=== PATIENT | female | born 1965 | race African-American/Black ===

== ENCOUNTER 2021-04-13 08:17 | Outpatient (REF) | payer OTHER, SELFPAY ==
--- NOTE | ~2021-04-13 | MM_ITS ---
EXAMINATION: MM SCREENING DIGITAL BREAST TOMOSYNTHESIS, BILATERAL CLINICAL INFORMATION: Screening. Asymptomatic. The lifetime risk of breast cancer based on the Tyrer-Cuzick Model is 19.0%. COMPARISON: Mammography: MRI of 10/30/2019 and studies dating back to 09/13/2014. TECHNIQUE: Digital breast tomosynthesis is performed in both the craniocaudal and mediolateral oblique views along with computer-aided detection (CAD). Synthesized 2D images are generated from the Tomosynthesis. FINDINGS: The breasts are heterogeneously dense, which may obscure small masses (ACR BI-RADS breast composition Category c). There is multiplicity and bilaterality of calcifications which are similar in appearance to other groupings including those that have been biopsied. No new more suspicious grouping of calcifications or abnormal dominant mass identified. Region of architectural distortion within the lateral aspect of the left breast from previous surgery is noted. MM/MM tomosynthesis screening BI IMPRESSION: There are no significant changes from prior study. ASSESSMENT: BI-RADS 2: Benign. RECOMMENDATION: Routine annual mammography screening. This patient's information was entered into a reminder system with a target due date for their next mammogram.
== END 2021-04-13 08:18 | disposition home or self-care (01) ==
LOC: HO.MAMMO 08:17
PROVIDERS: PCP Internal Medicine; Visit Provider Obstetrics & Gynecology Gynecology
DX: Z12.31 Encounter for screening mammogram for malignant neoplasm of breast (principal)
CPT/HCPCS: 77063; 77067

== ENCOUNTER 2021-04-17 13:04 | Outpatient (REF) | payer OTHER, SELFPAY ==
--- NOTE | ~2021-04-17 | US_ITS ---
EXAMINATION: US SCREENING ULTRASOUND BREAST, BILATERAL CLINICAL INFORMATION: Dense breasts on mammography. Screening ultrasound. Family history breast cancer, mother. TC score 19%. COMPARISON: Mammography 04/13/2021, bilateral breast MR 10/30/2019, bilateral breast screening ultrasound 07/15/2018. TECHNIQUE: Ultrasound is performed using grayscale imaging and color Doppler. Imaging is performed to include the four quadrants and retroareolar region. Both breasts are imaged. FINDINGS: Right breast: There is no suspicious finding by ultrasound. There is no cystic or solid mass or focal architectural abnormality. Left breast: There is no suspicious finding by ultrasound. There is no cystic or solid mass or focal architectural abnormality. US/US breast LT complete IMPRESSION: Normal study. ASSESSMENT: BI-RADS 1: Negative RECOMMENDATION: Routine annual mammography screening. Additional adjunct breast MRI as clinical risk factors warrant. This patient's information was entered into a reminder system with a target due date for their next mammogram.
--- NOTE | ~2021-04-17 | US_ITS ---
EXAMINATION: US SCREENING ULTRASOUND BREAST, BILATERAL CLINICAL INFORMATION: Dense breasts on mammography. Screening ultrasound. Family history breast cancer, mother. TC score 19%. COMPARISON: Mammography 04/13/2021, bilateral breast MR 10/30/2019, bilateral breast screening ultrasound 07/15/2018. TECHNIQUE: Ultrasound is performed using grayscale imaging and color Doppler. Imaging is performed to include the four quadrants and retroareolar region. Both breasts are imaged. FINDINGS: Right breast: There is no suspicious finding by ultrasound. There is no cystic or solid mass or focal architectural abnormality. Left breast: There is no suspicious finding by ultrasound. There is no cystic or solid mass or focal architectural abnormality. US/US breast RT complete IMPRESSION: Normal study. ASSESSMENT: BI-RADS 1: Negative RECOMMENDATION: Routine annual mammography screening. Additional adjunct breast MRI as clinical risk factors warrant. This patient's information was entered into a reminder system with a target due date for their next mammogram.
== END 2021-04-17 13:05 | disposition home or self-care (01) ==
LOC: HO.MAMMO 13:04
PROVIDERS: Visit Provider Obstetrics & Gynecology Gynecology
DX: R92.2 Inconclusive mammogram (principal); Z80.3 Family history of malignant neoplasm of breast
CPT/HCPCS: 76641

== ENCOUNTER 2021-09-04 10:43 | Outpatient (REF) | payer OTHER, SELFPAY ==
[2021-09-04 11:30] LABS: Estimated Average Glucose 120 mg/dL; Hemoglobin A1c % 5.8 %
== END 2021-09-04 10:44 | disposition home or self-care (01) ==
LOC: HO.LAB 10:43
PROVIDERS: Visit Provider Internal Medicine
DX: Z00.00 Encounter for general adult medical examination without abnormal findings (principal); R73.01 Impaired fasting glucose; R79.89 Other specified abnormal findings of blood chemistry
CPT/HCPCS: 36415; 82306; 83036

== ENCOUNTER 2022-04-16 15:52 | Outpatient (REF) | payer OTHER, SELFPAY ==
--- NOTE | ~2022-04-16 | MM_ITS ---
EXAMINATION: MM SCREENING DIGITAL BREAST TOMOSYNTHESIS, BILATERAL CLINICAL INFORMATION: Screening. Asymptomatic. Family history breast cancer, mother. Prior bilateral benign MR guided biopsy. The lifetime risk of breast cancer based on the Tyrer-Cuzick Model is 17%. COMPARISON: Mammography: 04/13/2021, 01/29/2019; outside mammography 10/02/2017, 03/06/2017, and 09/24/2016 ([facility]); bilateral screening breast ultrasound 04/17/2021, MR breasts 10/30/2019. TECHNIQUE: Digital breast tomosynthesis is performed in both the craniocaudal and mediolateral oblique views along with computer-aided detection (CAD). Synthesized 2D images are generated from the tomosynthesis. FINDINGS: The breasts are heterogeneously dense, which may obscure small masses (ACR BI-RADS breast composition Category c). There are no significant masses, abnormal calcifications, or other abnormalities. Parenchymal pattern is similar to prior studies. There is no developing density or architectural abnormality. There are biopsy clip markers again noted central 4:00 left breast and central upper outer right breast. The axilla and skin contours are unremarkable. No significant changes. MM/MM tomosynthesis screening BI IMPRESSION: No mammographic evidence of malignancy. ASSESSMENT: BI-RADS 1: Negative RECOMMENDATION: Routine annual mammography screening. This patient's information was entered into a reminder system with a target due date for their next mammogram.
== END 2022-04-16 15:53 | disposition home or self-care (01) ==
LOC: HO.MAMMO 15:52
PROVIDERS: PCP Internal Medicine; Visit Provider Internal Medicine
DX: Z12.31 Encounter for screening mammogram for malignant neoplasm of breast (principal)
CPT/HCPCS: 77063; 77067

== ENCOUNTER 2022-06-27 10:43 | Outpatient (REF) | payer OTHER, SELFPAY | END 2022-06-27 10:44 | disposition home or self-care (01) | LOC: HO.XRAY 10:43 | PROVIDERS: PCP Internal Medicine; Visit Provider Internal Medicine | DX: Z13.89 Encounter for screening for other disorder (principal) ==

== ENCOUNTER 2022-09-06 08:35 | Outpatient (REF) | payer OTHER, SELFPAY ==
[2022-09-06 09:01] LABS: MANUAL DIFF FLAG NO
[2022-09-06 09:25] LABS: Basophils Percent Auto 0.9 % (0-2); Eosinophils Absolute Auto 0.2 X10*3/uL (0.0-0.4); Eosinophils Percent Auto 3.9 % (0-4); Hematocrit 35.6 % (37.0-47.0); Hemoglobin 11.6 g/dl (12.0-16.0); Imm Gran Abs Auto 0.01 X10*3/uL (0.00-0.03); Imm Gran Pct Auto 0.2 % (0.0-0.4); Lymphocytes Absolute Auto 1.4 X10*3/uL (1.2-4.9); Lymphocytes Percent Auto 31.6 % (20-40); Mean Corpuscular HGB Conc 32.6 g/dl (31.0-35.0); Mean Corpuscular Hemoglobin 28.8 pg (27.0-33.0); Mean Corpuscular Volume 88.3 fL (80.0-98.0); Mean Platelet Volume 9.6 fL (9.4-12.3); Monocytes Absolute Auto 0.2 X10*3/uL (0.1-1.2); Monocytes Percent Auto 5.5 % (2-11); Neutrophils Absolute Auto 2.5 x10*3/uL (2.0-8.3); Neutrophils Percent Auto 57.9 % (45-73); Platelet Count 263 X10*3/uL (160-400); Red Blood Count 4.03 X10*6/uL (4.20-5.50); Red Cell Distribution Width 12.5 % (11.0-16.0); White Blood Count 4.3 X10*3/uL (4.8-10.8)
[2022-09-06 09:54] LABS: Anion Gap 11 (12-20); Blood Urea Nitrogen 13 mg/dL (9-16); Calcium 9.6 mg/dL (8.4-10.2); Carbon Dioxide 28 mmol/L (22-29); Chloride 104 mmol/L (96-108); Cholesterol 231 mg/dL; Estimated Glomerular Filt Rate > 60; Glucose Random 116 mg/dL (60-115); HDL Cholesterol 63 mg/dL; LDL Cholesterol Calculated 157 mg/dl; Sodium 139 mmol/L (135-145); Triglycerides 58 mg/dL; Vitamin D 25-OH Total 12.8 ng/mL (>30)
== END 2022-09-06 08:36 | disposition home or self-care (01) ==
LOC: HO.LAB 08:35
PROVIDERS: PCP Internal Medicine; Visit Provider Student in an Organized Health Care Education/Training Program
DX: Z00.00 Encounter for general adult medical examination without abnormal findings (principal); R79.89 Other specified abnormal findings of blood chemistry
CPT/HCPCS: 36415; 80048; 80061; 82306; 85025

== ENCOUNTER 2022-09-11 16:35 | Outpatient (REF) | payer OTHER, SELFPAY ==
--- NOTE | ~2022-09-11 | MR_ITS ---
EXAMINATION: MR CERVICAL SPINE WITHOUT CONTRAST CLINICAL INFORMATION: Radiculopathy. COMPARISON: There are no prior studies available for comparison. TECHNIQUE: MRI of the cervical spine was obtained using routine sequences without contrast. FINDINGS: VERTEBRAL BODIES AND PARASPINAL SOFT TISSUES: There is nonspecific straightening of the normal cervical lordosis on the sagittal images. There is a mild levoscoliosis. There are sequelae of ACDF at C3-C4 which cause susceptibility artifact. There is narrowing of intervertebral disc height at the levels of C5-C6 and C6-C7. The vertebral bodies of normal height and contour and no fractures are demonstrated. Overall, marrow signal is homogenous. The regional soft tissues are unremarkable. CERVICOMEDULLARY JUNCTION AND VISUALIZED POSTERIOR FOSSA: The craniocervical and posterior fossa structures are normal. Accounting for artifact, spinal cord signal appears normal. SPINAL LEVELS: C2-C3: There is a central and right paracentral soft disc protrusion which distorts the ventral thecal sac and impinges on the ventral cord to the right of midline. There is minimal central stenosis. There are uncovertebral osteophytes and there is mild to moderate right foraminal narrowing. C3-C4: There is susceptibility artifact along the posterior vertebral bodies, but there is no cord compression or central stenosis. The neural foramina appear patent. C4-C5: There is a posterior soft disc protrusion which is most prominent to the left of midline with some distortion of the ventral thecal sac and distortion of the cord on the left. This effaces CSF around the cord, and there is mild central stenosis. There is mild left foraminal narrowing. C5-C6: There is a broad-based posterior soft disc protrusion with some distortion of the ventral thecal sac but there is no cord compression or central stenosis. There are uncovertebral osteophytes and there is mild left foraminal narrowing. C6-C7: There is a lobular posterior soft disc protrusion which is slightly more prominent centrally and to the left arm midline with effacement of CSF around the cord and flattening of the cord, and there is also a protrusion protrusion just to the right of midline. There is moderate central stenosis. There are uncovertebral osteophytes, but there is no significant foraminal narrowing. C7-T1: The facet joints appear normal bilaterally. Posterior disc contour is normal. There is no spinal cord compression or central stenosis. The neural foramina are patent bilaterally. MR/MR cervical spine wo con IMPRESSION: 1. There are sequelae of ACDF at C3-C4. There is no cord compression or central stenosis and the neural foramina are patent. 2. At C6-C7 there is a lobular posterior soft disc protrusion which is slightly more prominent centrally and to the left of midline, and there is flattening of the cord with moderate central stenosis. There is no significant foraminal narrowing. 3. At C4-C5 there is a posterior soft disc protrusion which is most prominent to the left of midline. There is mild central stenosis and there is mild left foraminal narrowing. 4. At C2-C3 there is a central and right paracentral soft disc protrusion. There is mild central stenosis. There is mild to moderate right foraminal narrowing. 5. At C5-C6 there is a broad-based posterior soft disc protrusion. There is no cord compression or central stenosis. There is mild left foraminal narrowing.
== END 2022-09-11 16:36 | disposition home or self-care (01) ==
LOC: HO.MRI 16:35
PROVIDERS: Visit Provider Student in an Organized Health Care Education/Training Program
DX: M54.2 Cervicalgia (principal)
CPT/HCPCS: 72141

== ENCOUNTER 2023-04-22 15:48 | Outpatient (REF) | payer OTHER, SELFPAY ==
--- NOTE | ~2023-04-22 | MM_ITS ---
EXAMINATION: MM SCREENING DIGITAL BREAST TOMOSYNTHESIS, BILATERAL CLINICAL INFORMATION: Screening. Asymptomatic. The lifetime risk of breast cancer based on the Tyrer-Cuzick Model is 16.5%. COMPARISON: Mammography: This study is compared with the prior exams dating back to 2018. TECHNIQUE: Digital breast tomosynthesis is performed in both the craniocaudal and mediolateral oblique views along with computer-aided detection (CAD). Synthesized 2D images are generated from the tomosynthesis. FINDINGS: There are scattered areas of fibroglandular density (ACR BI-RADS breast composition Category b). There are no significant masses, abnormal calcifications, or other abnormalities. There is a tissue marker present in each breast from prior benign percutaneous biopsies. MM/MM tomosynthesis screening BI IMPRESSION: No mammographic evidence of malignancy. ASSESSMENT: BI-RADS BI-RADS 2 - Benign Findings RECOMMENDATION: Routine annual mammography screening. 1 year F/U This examination should not preclude the clinical evaluation of a suspicious palpable abnormality. This patient's information was entered into a reminder system with a target due date for their next mammogram.
== END 2023-04-22 15:49 | disposition home or self-care (01) ==
LOC: HO.MAMMO 15:48
PROVIDERS: Visit Provider Internal Medicine
DX: Z12.31 Encounter for screening mammogram for malignant neoplasm of breast (principal)
CPT/HCPCS: 77063; 77067

== ENCOUNTER → 2023-04-22 16:00 | Outpatient (BNV) | payer OTHER, SELFPAY | PROVIDERS: Visit Provider Radiology Diagnostic Radiology | DX: Z12.31 Encounter for screening mammogram for malignant neoplasm of breast (principal) | CPT/HCPCS: 77063; 77067 ==

== ENCOUNTER 2023-05-21 10:00 | Outpatient (RCR) | payer OTHER, SELFPAY ==
--- NOTE | 2023-03-12 19:20 | MHC.PT.EP ---
[facility] [place] [facility] [place] Office [place] Office [address] Yifan Christianson [address] [phone] F: [phone] F: [phone] F: [phone] F: [phone] Physical Therapy Plan of Care Date of Evaluation: Date of Surgery: Diagnosis: Cervical radiculopathy. 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 Pt is deemed an appropriate candidate to receive skilled PT services to address their physical impairments in order to improve their functional ability. Frequency and Duration: The patient will be seen 2 x / wk x 5 wks. Short Term Goals: Initiate HEP. Improve baseline pain to < 4/10; initial 5-7/10. 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 Improve DNF endurance by at least 10 seconds to demonstrate improved deep cervical strength; initial 10 seconds. Pt will report sleep only mildly impaired by cervical pain (1/4 night's sleep disturbed); initial: 3-5 hours sleepless (3/4 night's sleep disturbed). Pt will be able to drive her car as long as she'd like reporting only slight pain; initial: moderate pain and not able to drive as long as she'd like. Improve NDI by at least 9 points in order to demonstrate improved cervical function. Treatment Plan: Modalities to reduce pain, spasms and effusion. Manual therapy to restore motion and function. Therapeutic exercise to improve strength and flexibility. Neuromuscular re-education for posture and balance. Therapeutic activities to return to functional activities of daily living. Electronically signed by: Sean Molina PT. Please sign and return to therapist. Thank you for your referral.
--- NOTE | 2023-05-21 12:07 | MHC.PT.DC ---
[place] Office [place] Office [place] Office [address] Yifan Christianson [address] [phone] F: [phone] F: [phone] F: [phone] F: [phone] Physical Therapy Discharge Report Diagnosis: Cervical radiculopathy. Date of Surgery: Date of Evaluation: 03/12/23 Date of Discharge: 05/21/23 Treatments to Date: 9 Cancellations to Date: 1 No Shows to Date: 2 Discharge Status: Improved Function Independent with HEP Discharge Summary: The patient overall has been reporting little to no pain or discomfort. She has improved regarding her overall postural awareness. We discussed the importance of maintenance and continuing with home exercise program. She is independent with her home exercise program at this time. She is discharged from this physical therapy plan of care. Electronically signed by: Merna Rocha PT, DPT Please sign and return to therapist. Thank you for your referral.
== END 2023-05-21 12:08 | disposition home or self-care (01) ==
LOC: HO.PT 10:00
PROVIDERS: PCP Internal Medicine; Visit Provider Physician Assistant
DX: M54.12 Radiculopathy, cervical region (principal)
CPT/HCPCS: 97110; 97112; 97140; 97161

== ENCOUNTER 2023-12-17 18:50 | Outpatient (REF) | payer OTHER, SELFPAY ==
--- NOTE | ~2023-12-17 | MR_ITS ---
EXAMINATION: MR CERVICAL SPINE WITHOUT CONTRAST; MRI LUMBAR SPINE WITHOUT CONTRAST CLINICAL INFORMATION: Neck pain and lumbar stiffness, with self-reported left sided cervical and lumbar radicular symptoms. COMPARISON: None available. TECHNIQUE: Multiplanar multisequence MR imaging of the cervical spine was done without IV contrast. Multiplanar multisequence MR imaging of the lumbar spine was done without IV contrast. CERVICAL FINDINGS: Alignment: Partially imaged mid cervical levocurvature, slightly convex to the left at approximately C5-C6. Straightening of the cervical spine is noted in the sagittal plane. Craniocervical Junction/C1-C2 Articulations: Intact and aligned. Degenerative changes are noted at the C1-C2 articulations and anterior atlantodental joint. Visualized Intracranial Structures: Within normal limits. Vertebral Bodies: Vertebral body heights are well maintained. There is ferromagnetic artifact consistent with a previous ACDF procedure at the C3-C4 level partially obscuring the C3 and C4 vertebral bodies. Disc Spaces and Endplates: There is multilevel spondylosis at C2-C3 and between C4-C5 and C6-C7 inclusive, with multilevel disc desiccation, with ultv-pd-zqiywvja degrees of intervertebral disc space height loss at C2-C3 and C4-C5 and Schmorl's nodes seen at C6-C7. Bone Marrow: There are type I degenerative marrow signal changes seen along the endplates at C6-C7 and to a lesser degree at C4-C5. Allowing for metallic artifact at C3-C4, no focally aggressive osseous marrow replacement or suspicious bone marrow edema. C2-C3: Central to right paramedian extruded disc herniation noted with mild cephalad migration, with vikt-pc-ppzxyxib right-sided ventral cord impingement associated with ligamentum flavum thickening and knoa-iy-sumcpqoy spinal canal stenosis, asymmetric to the right. Uncovertebral spurring is noted bilaterally without significant neural foraminal stenosis. C3-C4: Status post ACDF with osteophytic ridging and flattening of the ventral dural sac without cord impingement. Ligamentum flavum thickening is noted with hqwl-yd-gjivhuam spinal canal stenosis. No significant neural foraminal stenosis. C4-C5: Broad-based central to left paramedian extruded disc herniation with cephalad migration on the left, with effacement of the ventral dural sac on the left resulting in wbqkyitx-ja-eyhebc left-sided cord compression/ventral cord deformity with jiwzvrho-yr-ufmini canal narrowing, asymmetric to the left. Uncovertebral spurring noted bilaterally with moderate bilateral neural foraminal stenosis. C5-C6: Broad-based central to left paramedian disc protrusion, with flattening of the ventral dural sac asymmetric to the left without cord impingement. Ligamentum flavum thickening is noted with no significant canal stenosis. Uncovertebral spurring is noted with siqhmknu-tl-csoexy left-sided neural foraminal stenosis. C6-C7: Broad-based diffuse disc bulging is noted with flattening of the ventral dural sac without cord impingement. No significant canal stenosis. Uncovertebral spurring bilaterally noted with drgf-vm-dylyyoji left and moderate right-sided neural foraminal stenosis. C7-T1: No disc herniation or canal stenosis. No significant DJD or neural foraminal stenosis. Spinal Cord: The cervical and visualized upper thoracic spinal cord is normal in signal intensity throughout, without focal lesion, edema or syrinx. Extracranial Soft Tissues: The visualized extracranial head/neck soft tissues are unremarkable within the limitations of the study. Normal signal voids are seen in the visualized major arterial and venous structures. MR/MR cervical spine wo con IMPRESSION: 1. Status post ACDF at the C3-C4 level with straightening of the cervical spine in the sagittal plane and mild mid cervical levocurvature. 2. Multilevel DDD and spondylosis as described above, with disc herniations at C2-C3 and C4-C5, with moderate to severe left-sided spinal cord compression at C4-C5 and lvki-hd-zonognkz right-sided ventral cord impingement at C2-C3. Central to left paramedian disc protrusion at C5-C6 and disc bulging at C6-C7 without cord impingement. Spinal canal stenosis at C2-C3 and C4-C5 as detailed above. 3. Multilevel DJD as discussed above with moderate bilateral neural foraminal stenosis at C4-C5, moderate to severe left-sided neural foraminal stenosis at C5-C6 and euxj-jd-hxpztnvf left and moderate right-sided neural foraminal stenosis at C6-C7. 4. Zmuj-wn-hntkmliy spinal canal stenosis at C3-C4. LUMBAR FINDINGS: Coronal Alignment: Mild S-shaped lumbar scoliotic curvature, slightly convex to the left at L4-L5 and to the right at T12-L1. Sagittal Alignment: There is 2 mm of grade 1 degenerative spondylolisthesis at L4-L5 without spondylolysis. There is mild hyperlordosis centered at L3 with otherwise normal lumbosacral alignment. Lumbosacral Junction: Transitional lumbosacral anatomy with lowest lumbar-like segment labeled as L5, which appears partially sacralized. Vertebral Bodies: Vertebral body heights are well maintained. Disc Spaces and Endplates: Mild disc volume loss at L4-L5 noted with mild spondylosis. Enpu-xr-tgbswfts disc volume loss at L5-S1 noted with minor spondylosis. Otherwise intervertebral disc space heights and signal are well maintained throughout the lumbar spine. There are mild degrees of anterior marginal endplate spurring throughout the remainder of the lumbar spine. Endplates appear grossly intact. Spinal Canal: No abnormal developmental findings. Bone Marrow: Mild bone marrow edema noted in the right L4 pedicle is nonspecific but could reflect a stress reaction. Otherwise no suspicious marrow edema or focally aggressive marrow-replacing process. Conus Medullaris: Terminates at L2. Morphology and signal is normal. Intradural Nerve Roots: Within normal limits. L5-S1: Mild disc bulging with a superimposed small central to right paramedian disc protrusion with an annular fissure, with mild indentation of the ventral thecal sac asymmetric to the right abutting the origin of the right L5 nerve root sleeve. Moderate right-sided facet joint arthropathy noted. Ligamentum flavum thickening noted with hrti-cp-vfgbahqz central spinal canal stenosis. Minor foraminal narrowing on the right without neural impingement. Somewhat bulky right paravertebral disc osteophyte complex also noted at this level. L4-L5: Slight unroofing of the posterior disc margin consistent with mild grade 1 degenerative spondylolisthesis, with superimposed concentric disc bulging and mild flattening of the ventral dural sac. Ligamentum flavum thickening is noted with fbbqjpis-sg-apqhod bilateral facet joint arthropathy with interspinous ligament degeneration. Left-sided facet joint effusion noted. Nuzb-hi-hqpdlnfk spinal canal stenosis is noted with hddv-bd-lekgbvjx narrowing of the subarticular zones bilaterally. Mild foraminal narrowing is noted bilaterally without exiting neural impingement. L3-L4: Minor annular bulging with minor facet arthropathy bilaterally without significant canal or foraminal stenosis. L2-L3: Minor annular bulging with minor facet of atrophic changes without significant canal stenosis. Mild foraminal narrowing is noted bilaterally without neural impingement. L1-L2: Normal annular contour. No facet arthrosis, canal or foraminal stenosis. T12-L1: Normal annular contour. No significant facet arthrosis, canal or foraminal stenosis. Paravertebral and Included Extraspinal Soft Tissues: The paravertebral soft tissues appear grossly unremarkable. Subcentimeter simple-appearing cysts in the left kidney. Limited evaluation.?No specific follow up recommended based on the current ACR Best Practice Guidelines. Incidental bulky appearance to the uterine fundus which is partially imaged and appears to contain T2 hypointense masses suggesting uterine leiomyomata. Correlate with pelvic ultrasound. IMPRESSION: 1. Mild grade 1 degenerative spondylolisthesis at L4-L5 with moderately extensive facet joint arthropathy at this level bilaterally with interspinous ligament degeneration, ligamentum flavum thickening and hqxd-cl-sqbfsqta spinal canal stenosis. Mild foraminal narrowing at this level bilaterally without neural impingement. 2. Discogenic degenerative changes at L4-L5 and L5-S1 with disc bulging and a central to right paramedian disc protrusion at L5-S1 with mild encroachment on the ventral dural sac on the right, with facet arthropathy on the right at this level and sgwz-rs-dbnplbrq spinal canal stenosis. Minor foraminal narrowing on the right at this level without neural impingement. 3. Mild marrow edema in the right L4 pedicle which may reflect stress reaction. 4. Other levels of minor degrees of disc bulging and facet arthropathy without spinal canal or neural foraminal stenosis. 5. Bulky-appearing uterus possibly containing multiple uterine leiomyomata. Recommend correlation with pelvic ultrasound.
--- NOTE | ~2023-12-17 | MR_ITS ---
EXAMINATION: MR CERVICAL SPINE WITHOUT CONTRAST; MRI LUMBAR SPINE WITHOUT CONTRAST CLINICAL INFORMATION: Neck pain and lumbar stiffness, with self-reported left sided cervical and lumbar radicular symptoms. COMPARISON: None available. TECHNIQUE: Multiplanar multisequence MR imaging of the cervical spine was done without IV contrast. Multiplanar multisequence MR imaging of the lumbar spine was done without IV contrast. CERVICAL FINDINGS: Alignment: Partially imaged mid cervical levocurvature, slightly convex to the left at approximately C5-C6. Straightening of the cervical spine is noted in the sagittal plane. Craniocervical Junction/C1-C2 Articulations: Intact and aligned. Degenerative changes are noted at the C1-C2 articulations and anterior atlantodental joint. Visualized Intracranial Structures: Within normal limits. Vertebral Bodies: Vertebral body heights are well maintained. There is ferromagnetic artifact consistent with a previous ACDF procedure at the C3-C4 level partially obscuring the C3 and C4 vertebral bodies. Disc Spaces and Endplates: There is multilevel spondylosis at C2-C3 and between C4-C5 and C6-C7 inclusive, with multilevel disc desiccation, with stvq-or-vgozhqwz degrees of intervertebral disc space height loss at C2-C3 and C4-C5 and Schmorl's nodes seen at C6-C7. Bone Marrow: There are type I degenerative marrow signal changes seen along the endplates at C6-C7 and to a lesser degree at C4-C5. Allowing for metallic artifact at C3-C4, no focally aggressive osseous marrow replacement or suspicious bone marrow edema. C2-C3: Central to right paramedian extruded disc herniation noted with mild cephalad migration, with fktd-qi-fgycqykq right-sided ventral cord impingement associated with ligamentum flavum thickening and infp-ow-acxvrhpy spinal canal stenosis, asymmetric to the right. Uncovertebral spurring is noted bilaterally without significant neural foraminal stenosis. C3-C4: Status post ACDF with osteophytic ridging and flattening of the ventral dural sac without cord impingement. Ligamentum flavum thickening is noted with vdai-xt-ucmzuflp spinal canal stenosis. No significant neural foraminal stenosis. C4-C5: Broad-based central to left paramedian extruded disc herniation with cephalad migration on the left, with effacement of the ventral dural sac on the left resulting in eoqewrgr-qm-aaucmi left-sided cord compression/ventral cord deformity with csidoqan-nc-fipdfq canal narrowing, asymmetric to the left. Uncovertebral spurring noted bilaterally with moderate bilateral neural foraminal stenosis. C5-C6: Broad-based central to left paramedian disc protrusion, with flattening of the ventral dural sac asymmetric to the left without cord impingement. Ligamentum flavum thickening is noted with no significant canal stenosis. Uncovertebral spurring is noted with eklcaadh-px-uaards left-sided neural foraminal stenosis. C6-C7: Broad-based diffuse disc bulging is noted with flattening of the ventral dural sac without cord impingement. No significant canal stenosis. Uncovertebral spurring bilaterally noted with hbpz-ae-zfbpudbt left and moderate right-sided neural foraminal stenosis. C7-T1: No disc herniation or canal stenosis. No significant DJD or neural foraminal stenosis. Spinal Cord: The cervical and visualized upper thoracic spinal cord is normal in signal intensity throughout, without focal lesion, edema or syrinx. Extracranial Soft Tissues: The visualized extracranial head/neck soft tissues are unremarkable within the limitations of the study. Normal signal voids are seen in the visualized major arterial and venous structures. MR/MR lumbar spine wo con IMPRESSION: 1. Status post ACDF at the C3-C4 level with straightening of the cervical spine in the sagittal plane and mild mid cervical levocurvature. 2. Multilevel DDD and spondylosis as described above, with disc herniations at C2-C3 and C4-C5, with moderate to severe left-sided spinal cord compression at C4-C5 and aoqi-js-jsilrmhr right-sided ventral cord impingement at C2-C3. Central to left paramedian disc protrusion at C5-C6 and disc bulging at C6-C7 without cord impingement. Spinal canal stenosis at C2-C3 and C4-C5 as detailed above. 3. Multilevel DJD as discussed above with moderate bilateral neural foraminal stenosis at C4-C5, moderate to severe left-sided neural foraminal stenosis at C5-C6 and xjev-ru-qudhxwnw left and moderate right-sided neural foraminal stenosis at C6-C7. 4. Bgti-ju-vzuodifn spinal canal stenosis at C3-C4. LUMBAR FINDINGS: Coronal Alignment: Mild S-shaped lumbar scoliotic curvature, slightly convex to the left at L4-L5 and to the right at T12-L1. Sagittal Alignment: There is 2 mm of grade 1 degenerative spondylolisthesis at L4-L5 without spondylolysis. There is mild hyperlordosis centered at L3 with otherwise normal lumbosacral alignment. Lumbosacral Junction: Transitional lumbosacral anatomy with lowest lumbar-like segment labeled as L5, which appears partially sacralized. Vertebral Bodies: Vertebral body heights are well maintained. Disc Spaces and Endplates: Mild disc volume loss at L4-L5 noted with mild spondylosis. Bevd-be-ygiicyfa disc volume loss at L5-S1 noted with minor spondylosis. Otherwise intervertebral disc space heights and signal are well maintained throughout the lumbar spine. There are mild degrees of anterior marginal endplate spurring throughout the remainder of the lumbar spine. Endplates appear grossly intact. Spinal Canal: No abnormal developmental findings. Bone Marrow: Mild bone marrow edema noted in the right L4 pedicle is nonspecific but could reflect a stress reaction. Otherwise no suspicious marrow edema or focally aggressive marrow-replacing process. Conus Medullaris: Terminates at L2. Morphology and signal is normal. Intradural Nerve Roots: Within normal limits. L5-S1: Mild disc bulging with a superimposed small central to right paramedian disc protrusion with an annular fissure, with mild indentation of the ventral thecal sac asymmetric to the right abutting the origin of the right L5 nerve root sleeve. Moderate right-sided facet joint arthropathy noted. Ligamentum flavum thickening noted with lula-um-pnvipkov central spinal canal stenosis. Minor foraminal narrowing on the right without neural impingement. Somewhat bulky right paravertebral disc osteophyte complex also noted at this level. L4-L5: Slight unroofing of the posterior disc margin consistent with mild grade 1 degenerative spondylolisthesis, with superimposed concentric disc bulging and mild flattening of the ventral dural sac. Ligamentum flavum thickening is noted with gyvhloyf-un-loxfcj bilateral facet joint arthropathy with interspinous ligament degeneration. Left-sided facet joint effusion noted. Sqst-tl-ywzmfjmo spinal canal stenosis is noted with nrwr-dz-vhjezwit narrowing of the subarticular zones bilaterally. Mild foraminal narrowing is noted bilaterally without exiting neural impingement. L3-L4: Minor annular bulging with minor facet arthropathy bilaterally without significant canal or foraminal stenosis. L2-L3: Minor annular bulging with minor facet of atrophic changes without significant canal stenosis. Mild foraminal narrowing is noted bilaterally without neural impingement. L1-L2: Normal annular contour. No facet arthrosis, canal or foraminal stenosis. T12-L1: Normal annular contour. No significant facet arthrosis, canal or foraminal stenosis. Paravertebral and Included Extraspinal Soft Tissues: The paravertebral soft tissues appear grossly unremarkable. Subcentimeter simple-appearing cysts in the left kidney. Limited evaluation.?No specific follow up recommended based on the current ACR Best Practice Guidelines. Incidental bulky appearance to the uterine fundus which is partially imaged and appears to contain T2 hypointense masses suggesting uterine leiomyomata. Correlate with pelvic ultrasound. IMPRESSION: 1. Mild grade 1 degenerative spondylolisthesis at L4-L5 with moderately extensive facet joint arthropathy at this level bilaterally with interspinous ligament degeneration, ligamentum flavum thickening and dpyz-dv-gypqrxwq spinal canal stenosis. Mild foraminal narrowing at this level bilaterally without neural impingement. 2. Discogenic degenerative changes at L4-L5 and L5-S1 with disc bulging and a central to right paramedian disc protrusion at L5-S1 with mild encroachment on the ventral dural sac on the right, with facet arthropathy on the right at this level and tnow-wx-mkkgkiib spinal canal stenosis. Minor foraminal narrowing on the right at this level without neural impingement. 3. Mild marrow edema in the right L4 pedicle which may reflect stress reaction. 4. Other levels of minor degrees of disc bulging and facet arthropathy without spinal canal or neural foraminal stenosis. 5. Bulky-appearing uterus possibly containing multiple uterine leiomyomata. Recommend correlation with pelvic ultrasound.
== END 2023-12-17 18:51 | disposition home or self-care (01) ==
LOC: HO.MRI 18:50
PROVIDERS: PCP Internal Medicine; Visit Provider Physician Assistant
DX: M54.12 Radiculopathy, cervical region (principal); M54.16 Radiculopathy, lumbar region
CPT/HCPCS: 72141; 72148

== ENCOUNTER 2024-03-13 08:44 | Outpatient (REF) | payer OTHER, SELFPAY ==
--- NOTE | ~2024-03-13 | MR_ITS ---
EXAMINATION: MR BRAIN WITHOUT CONTRAST CLINICAL INFORMATION: 58-year-old female, persistent headache. Blurred vision right greater than left. COMPARISON: None available. TECHNIQUE: MRI of the brain was obtained using routine sequences without contrast. Examination was performed on a 1.5 Valerie unit. FINDINGS: There is no diffusion restriction. There is no intracranial hemorrhage, acute infarction, mass effect, or edema. Ventricles, sulci, and cisterns are normal in size and configuration for patient age. There is a cavum vergae. No shift of midline. No extra-axial collection. No abnormal hemosiderin deposition is identified. There are a few rare punctate foci of white matter T2 hyperintensity in the periventricular, subcortical, and hemispheric deep white matter, nonspecific. Midline structures appear normally formed. The pituitary gland appears normal. Posterior fossa structures appear normal. Cerebellar tonsils are appropriately located. Major flow voids are preserved within the skull base. The globes and orbital contents demonstrate no abnormalities. Paranasal sinuses demonstrate xhin-ji-uwxeehjt mucosal thickening in the bilateral anterior ethmoid sinuses and mild in the frontal sinuses. No air-fluid levels. Nasal septum is midline without spur. The mastoids and tympanic cavities are normally aerated. Extracranial soft tissues demonstrate no abnormalities. No suspicious bone marrow changes are evident. Right TM joint condylar replacement likely present. Craniocervical junction demonstrates moderate degenerative changes in the C1 lateral mass articulations with the occipital condyles. Hardware is noted in C3. MR/MR head/brain wo con IMPRESSION: 1. No evidence of intracranial hemorrhage, acute infarction, mass effect, edema, or abnormal susceptibility. 2. A few scattered punctate T2 white matter foci, nonspecific but most likely on the basis of small vessel ischemia. No distribution or morphology specific to demyelinating disease. 3. Probable right TM joint condylar replacement. 4. Mild to moderate anterior ethmoid sinus mucosal thickening.
[2024-03-13 09:52] LABS: MANUAL DIFF FLAG NO
[2024-03-13 11:16] LABS: Basophils Percent Auto 0.8 % (0-2); Eosinophils Absolute Auto 0.3 X10*3/uL (0.0-0.4); Eosinophils Percent Auto 8.4 % (0-4); Hemoglobin 12.5 g/dl (12.0-16.0); Imm Gran Abs Auto 0.01 X10*3/uL (0.00-0.03); Imm Gran Pct Auto 0.3 % (0.0-0.4); Lymphocytes Absolute Auto 1.6 X10*3/uL (1.2-4.9); Lymphocytes Percent Auto 42.5 % (20-40); Mean Corpuscular HGB Conc 33.8 g/dl (31.0-35.0); Mean Corpuscular Hemoglobin 29.7 pg (27.0-33.0); Mean Corpuscular Volume 87.9 fL (80.0-98.0); Mean Platelet Volume 9.5 fL (9.4-12.3); Monocytes Absolute Auto 0.2 X10*3/uL (0.1-1.2); Monocytes Percent Auto 4.2 % (2-11); Neutrophils Absolute Auto 1.7 x10*3/uL (2.0-8.3); Neutrophils Percent Auto 43.8 % (45-73); Platelet Count 270 X10*3/uL (160-400); Red Blood Count 4.21 X10*6/uL (4.20-5.50); Red Cell Distribution Width 13.2 % (11.0-16.0); White Blood Count 3.8 X10*3/uL (4.8-10.8)
[2024-03-13 11:23] LABS: Estimated Average Glucose 123 mg/dL; Hemoglobin A1c % 5.9 % (<6.0)
[2024-03-13 11:55] LABS: Erythrocyte Sedimentation Rate 17 MM/HR (0-20)
[2024-03-13 12:07] LABS: Alanine Aminotransferase 21 U/L (0-31); Albumin Level 4.3 g/dL (3.5-5.0); Alkaline Phosphatase 49 U/L (39-117); Anion Gap 14 (12-20); Aspartate Amino Transferase 18 U/L (5-31); Bilirubin Total 0.6 mg/dL (0.0-1.0); Blood Urea Nitrogen 12 mg/dL (9-16); C Reactive Protein < 0.10 mg/dL (< or = 0.50); Calcium 9.6 mg/dL (8.4-10.2); Carbon Dioxide 28 mmol/L (22-29); Chloride 105 mmol/L (96-108); Estimated Glomerular Filt Rate > 60; Glucose Random 90 mg/dL (60-115); Potassium 3.8 mmol/L (3.3-5.1); Sodium 143 mmol/L (135-145); Total Protein 7.6 g/dL (6.5-8.0)
== END 2024-03-13 08:45 | disposition home or self-care (01) ==
LOC: HO.MRI 08:44
PROVIDERS: PCP Internal Medicine; Visit Provider Physician Assistant Medical
DX: G44.52 New daily persistent headache (NDPH) (principal); H53.8 Other visual disturbances
CPT/HCPCS: 36415; 70551; 80053; 83036; 85025; 85652; 86140

== ENCOUNTER → 2024-03-13 08:44 | Outpatient (BNV) | payer OTHER, SELFPAY | PROVIDERS: PCP Internal Medicine; Visit Provider Radiology Diagnostic Radiology | DX: R51.9 Headache, unspecified (principal); H53.8 Other visual disturbances | CPT/HCPCS: 70551 ==

== ENCOUNTER 2024-04-23 15:43 | Outpatient (REF) | payer OTHER, SELFPAY ==
--- NOTE | ~2024-04-23 | MM_ITS ---
EXAMINATION: MM SCREENING DIGITAL BREAST TOMOSYNTHESIS, BILATERAL CLINICAL INFORMATION: Screening. Asymptomatic. COMPARISON: Mammography: This study is compared with prior exams dating back to 2019. TECHNIQUE: Digital breast tomosynthesis is performed in both the craniocaudal and mediolateral oblique views along with computer-aided detection (CAD). Synthesized 2D images are generated from the tomosynthesis. FINDINGS: The breasts are heterogeneously dense, which may obscure small masses (ACR BI-RADS breast composition Category c). There are no significant masses, abnormal calcifications, or other abnormalities. There is a biopsy tissue marker in each breast from prior benign percutaneous biopsy. MM/MM tomosynthesis screening BI IMPRESSION: No mammographic evidence of malignancy. ASSESSMENT: BI-RADS BI-RADS 2 - Benign Findings RECOMMENDATION: Routine annual mammography screening. 1 year F/U This examination should not preclude the clinical evaluation of a suspicious palpable abnormality. This patient's information was entered into a reminder system with a target due date for their next mammogram.
== END 2024-04-23 15:44 | disposition home or self-care (01) ==
LOC: HO.MAMMO 15:43
PROVIDERS: PCP Internal Medicine; Visit Provider Internal Medicine
DX: Z12.31 Encounter for screening mammogram for malignant neoplasm of breast (principal)
CPT/HCPCS: 77063; 77067

== ENCOUNTER → 2024-04-23 15:45 | Outpatient (BNV) | payer OTHER, SELFPAY | PROVIDERS: PCP Internal Medicine; Visit Provider Radiology Diagnostic Radiology | DX: Z12.31 Encounter for screening mammogram for malignant neoplasm of breast (principal) | CPT/HCPCS: 77063; 77067 ==

== ENCOUNTER 2024-07-31 10:56 | Outpatient (REF) | payer OTHER, SELFPAY ==
[2024-07-31 11:18] LABS: MANUAL DIFF FLAG NO
[2024-07-31 11:46] LABS: Basophils Absolute Auto 0.1 X10*3/uL (0.0-0.2); Basophils Percent Auto 1.1 % (0-2); Eosinophils Absolute Auto 0.3 X10*3/uL (0.0-0.4); Eosinophils Percent Auto 6.6 % (0-4); Hematocrit 36.2 % (37.0-47.0); Hemoglobin 12.1 g/dl (12.0-16.0); Imm Gran Abs Auto 0.01 X10*3/uL (0.00-0.03); Imm Gran Pct Auto 0.2 % (0.0-0.4); Lymphocytes Absolute Auto 1.9 X10*3/uL (1.2-4.9); Lymphocytes Percent Auto 41.1 % (20-40); Mean Corpuscular HGB Conc 33.4 g/dl (31.0-35.0); Mean Corpuscular Hemoglobin 29.3 pg (27.0-33.0); Mean Corpuscular Volume 87.7 fL (80.0-98.0); Mean Platelet Volume 9.5 fL (9.4-12.3); Monocytes Absolute Auto 0.2 X10*3/uL (0.1-1.2); Monocytes Percent Auto 4.6 % (2-11); Neutrophils Absolute Auto 2.1 x10*3/uL (2.0-8.3); Neutrophils Percent Auto 46.4 % (45-73); Platelet Count 250 X10*3/uL (160-400); Red Blood Count 4.13 X10*6/uL (4.20-5.50); Red Cell Distribution Width 13.3 % (11.0-16.0); White Blood Count 4.6 X10*3/uL (4.8-10.8)
[2024-07-31 12:37] LABS: Anion Gap 10 (12-20); Blood Urea Nitrogen 10 mg/dL (9-16); Calcium 9.9 mg/dL (8.4-10.2); Carbon Dioxide 29 mmol/L (22-29); Chloride 108 mmol/L (96-108); Estimated Glomerular Filt Rate > 60; Glucose Random 102 mg/dL (60-115); Magnesium 2.1 mg/dL (1.6-2.6); Potassium 4.1 mmol/L (3.3-5.1); Sodium 143 mmol/L (135-145)
== END 2024-07-31 10:57 | disposition home or self-care (01) ==
LOC: HO.LAB 10:56
PROVIDERS: PCP Internal Medicine; Visit Provider Internal Medicine Gastroenterology
DX: R25.2 Cramp and spasm (principal)
CPT/HCPCS: 36415; 80048; 83735; 85025

== ENCOUNTER 2024-08-30 19:08 | Emergency (ER) | payer OTHER, SELFPAY ==
[2024-08-30] VITALS (7 sets, daily range): BP systolic 109–155; BP diastolic 57–85; PULSE 54–66; RESP 14–23; TEMP 36.5–37; O2SAT 98–100; BMI 28.7
--- NOTE | 2024-08-30 | ECG_ITS ---
Test Reason : CHEST PAIN Blood Pressure : / mmHG Vent. Rate : 068 BPM Atrial Rate : 068 BPM P-R Int : 134 ms QRS Dur : 090 ms QT Int : 404 ms P-R-T Axes : -06 -25 -02 degrees QTc Int : 429 ms Normal sinus rhythm Minimal voltage criteria for LVH, may be normal variant ( R in aVL ) Possible Lateral infarct , age undetermined Abnormal ECG No previous ECGs available Referred By: Generic ED Physician Electronically Signed By:EDVIN MOHAMUD
--- NOTE | ~2024-08-30 | CT_ITS ---
EXAMINATION: CTA CHEST CLINICAL INFORMATION: Chest pain with question of dissection COMPARISON: Chest x-ray earlier today TECHNIQUE: Multidetector volumetric CT imaging of the chest was obtained both before as well as after the administration of 70 mL of Omnipaque 350 intravenous contrast without immediate adverse reactions. Axial MIP volume rendering provided. Sagittal and coronal reformatted images were obtained. Additional 2-D coronal and sagittal reformatted images and axial 3-D maximum intensity projection MIP images are generated on the CT workstation. This CT examination was performed using dose optimization techniques as appropriate, variously including the following: *Automated exposure control *Adjustment of mA and/or kV according to patient size (this includes techniques or standardized protocols for targeted exams where dose is matched to indication/reason for exam; i.e. extremities or head) *Use of iterative reconstruction technique DLP: 253 mGy-cm VASCULAR FINDINGS: The thoracic aorta appears normal without aneurysm, dissection or intramural hematoma. Tricuspid aortic valve is present. No significant coronary calcium is seen. Two-vessel branching pattern of the aortic arch is present with a common trunk involving the innominate and left carotid. The great vessels are widely patent. The small visualized portion of the abdominal aorta appears normal with patent celiac and SMA. A small renal artery on the left and a larger renal artery on the right are patent. There is likely an additional renal artery on the left arising from the more inferior aorta not included on this exam. No central or large proximal pulmonary emboli are seen. The left atria and pulmonary veins appear normal as does the left atrial appendage without thrombus NONVASCULAR FINDINGS: LUNGS: There is a 6.0 x 5.5 x 5.9 mm pleural-based groundglass nodule in the right lower lobe (6: 230). The lungs are otherwise clear with no evidence of inflammation or worrisome nodules. Some bibasilar atelectasis is present. MEDIASTINUM: Some small thyroid nodules are present the largest measuring 6 mm on the left. No mediastinal or hilar lymphadenopathy. Heart size within normal limits. PLEURA: There is no pleural effusion. No pleural mass or thickening. AXILLA: No lymphadenopathy. UPPER ABDOMEN: Unremarkable. OSSEOUS STRUCTURES: Unremarkable. CT/CT angio chest aorta IMPRESSION: 1. No evidence of aortic dissection or other acute aortic syndrome. 2. 6 mm groundglass nodule right lower lobe. 3. Incidental note made of small thyroid nodules. According to the UPDATED 2017 Fleischner Society recommendations, the advised follow-up imaging for a single ground glass nodule <6 mm is no routine follow-up. Electronically signed by: Deangelo Connelly MD 08/30/2024 10:56 PM [facility]
--- NOTE | ~2024-08-30 | XR_ITS ---
EXAMINATION: XR CHEST CLINICAL INFORMATION: Chest pain. COMPARISON: None available. TECHNIQUE: Frontal view of the chest was obtained. FINDINGS: The lungs are clear. The cardiomediastinal silhouette is normal in size. There is no pleural effusion or pneumothorax. No acute osseous abnormality. XR/XR chest 1V IMPRESSION: No acute cardiopulmonary findings. Electronically signed by: Deepak Pavon MD 08/30/2024 07:59 PM [facility]
--- NOTE | 2024-08-30 19:25 | ED_ITS ---
HPI - Chest Pain General Chief Complaint: Chest Pain Stated Complaint: chest pain Time Seen by Provider: 08/30/24 19:25 Source: patient Mode of arrival: ambulatory Limitations: no limitations History of Present Illness ED Provider: elyse SORENSON narrative: Patient patient with no significant past medical history noticed mid chest pain on 08/27 lasted only for few hours did not seek any medical attention got better off its own today while at rest about 90 minutes prior with a similar pain in mid chest radiating to the back pain comes and goes feels uncomfortable took aspirin prior to arrival low risk for PE Related Data Allergies Allergy/AdvReac Type Severity Reaction Status Date / Time No Known Allergies Allergy Unverified 08/30/24 19:18 [No Known Allergies*] Review of Systems 2 Review of Systems: Yes all other systems are reviewed and are negative [facility] Social History Social History Alcohol intake: current Alcohol intake frequency: holidays/special occasions only Alcohol type: wine Smoked in Last 30 Days: No Use of substances other than those prescribed or required for medical reasons: No Advance Directives: No Advance Directives Information Provided: No Patient : No Physical Exam 2 Vital Signs: Vital Signs: Last Vital Signs Temp 98.1 F 08/30/24 23:46 Pulse 61 08/30/24 23:46 Resp 16 08/30/24 23:46 BP 109/57 L 08/30/24 23:46 Pulse Ox 98 08/30/24 23:46 O2 Del Method Room Air 08/30/24 23:46 BMI result Body Mass Index 28.7 Appearance: Alert. Oriented X3. No acute distress. Eyes: No pallor or icterus ENT: Pharynx normal. Oral Mucosa moist Neck: Normal inspection. Neck supple. CVS: Normal heart rate and rhythm. Pulses normal. No murmur rub or gallop Respiratory: No respiratory distress. Equal air entry bilateral, no wheezing/rales/rhonchi Abdomen: Soft and nontender. Bowel sounds are present, no mass palpable, no CVA tenderness Skin: Skin warm and dry. Normal skin color. Normal skin turgor. Extremities: No lower extremity edema. No calf tenderness Neuro: Oriented X 3. No motor deficit. No sensory deficit.No cerebellar signs , cranial nerves II-XII intact Medications Administered Discontinued Medications Generic Name Dose Route Start Last Admin Trade Name Angella PRN Reason Stop Dose Admin Iohexol 70 ml 08/30/24 21:59 08/30/24 22:00 Iohexol 350 Mg/Ml 100 Ml Infus..Btl IV 08/30/24 22:00 70 ml ONCE ONE Administration Ketorolac Tromethamine 30 mg 08/30/24 23:19 08/30/24 23:33 Ketorolac Tromethamine 30 Mg/Ml Vial IVPUSH 08/30/24 23:20 30 mg ONCE ONE Administration Nitroglycerin 0.4 mg 08/30/24 19:30 08/30/24 19:36 Nitroglycerin 0.4 Mg Tab.Subl SUBLINGUAL 08/30/24 19:31 0.4 mg ONCE ONE Administration Nitroglycerin 1 inch 08/30/24 19:35 08/30/24 19:48 Nitroglycerin 2 % Oint 1 Gm Packet TRANSDERMA 08/30/24 19:36 1 inch ONCE ONE Administration Medical Decision Making Medical Decision Making [facility] Narrative: Patient with mid chest pain radiating to the upper back with no prior cardiac history 2 sets of high sensitive troponin negative CTA chest was done to rule out dissection which is also negative EKG without any ischemic changes case discussed with Dr. De León petroleum laboratory technician advised to follow up as outpatient likely noncardiac patient felt better after the Toradol Differential Diagnosis Differential Diagnoses: The differential diagnosis associated with the presentation includes ACS/non-STEMI/STEMI/dissection/PE Consult Healthcare Provider Management of the patient was discussed with: Eyelet Riveter Dr. De León petroleum laboratory technician Lab Data [facility] Lab Attestation statement: I reviewed the patient's lab results. 08/30/24 19:30 08/30/24 19:30 Labs: Lab Results 08/30/24 08/30/24 08/30/24 Range/Units 19:30 19:32 21:15 WBC 6.2 (4.8-10.8) X10*3/uL RBC 4.11 L (4.20-5.50) X10*6/uL Hgb 12.2 (12.0-16.0) g/dl Hct 35.5 L (37.0-47.0) % MCV 86.4 (80.0-98.0) fL MCH 29.7 (27.0-33.0) pg MCHC 34.4 (31.0-35.0) g/dl RDW 13.2 (11.0-16.0) % Plt Count 234 (160-400) X10*3/uL MPV 8.9 L (9.4-12.3) fL Immature Gran % (Auto) 0.3 (0.0-0.4) % Neut % (Auto) 46.8 (45-73) % Lymph % (Auto) 39.7 (20-40) % [place] % (Auto) 5.1 (2-11) % Eos % (Auto) 7.6 H (0-4) % Baso % (Auto) 0.5 (0-2) % Lymph # (Auto) 2.5 (1.2-4.9) X10*3/uL [place] # (Auto) 0.3 (0.1-1.2) X10*3/uL Eos # (Auto) 0.5 H (0.0-0.4) X10*3/uL Baso # (Auto) 0.0 (0.0-0.2) X10*3/uL Abs Immat Gran (auto) 0.02 (0.00-0.03) X10*3/uL Absolute Neuts (auto) 2.9 (2.0-8.3) x10*3/uL Absolute Nucleated RBC 0.000 (0.0-0.012) X10*3/uL Nucleated RBC % (auto) 0.0 (0.0-0.2) /100WBC PT 11.9 (10.9-12.4) SEC INR 1.0 (0.9-1.1) APTT 30.7 (26.0-36.8) SEC Sodium 141 (135-145) mmol/L Potassium 3.7 (3.3-5.1) mmol/L Chloride 106 (96-108) mmol/L Carbon Dioxide 24 (22-29) mmol/L Anion Gap 15 (12-20) BUN 15 (9-16) mg/dL Creatinine 0.96 (0.5-1.4) mg/dL Estim Creat Clear Calc 69.2 Estimated GFR 60 Random Glucose 116 H (60-115) mg/dL Calcium 9.6 (8.4-10.2) mg/dL Magnesium 2.0 (1.6-2.6) mg/dL Total Bilirubin 0.4 (0.0-1.0) mg/dL AST 18 (5-31) U/L ALT 20 (0-31) U/L Alkaline Phosphatase 48 (39-117) U/L Troponin I High Sens < 2.7 < 2.7 (<3.5-17.0) ng/L Total Protein 7.4 (6.5-8.0) g/dL Albumin 4.2 (3.5-5.0) g/dL Independent Interpretation I performed an independent interpretation of an: EKG and CT Scan Interpretation: Normal sinus rhythm heart rate 68 beats per minute normal intervals LVH no acute ST-T changes no acute ischemia Radiology Impression Discussion of test interpretation with radiology: I have reviewed the radiologist's reading. Radiologist Impression: [place] [id number] CT Scan Report Signed Patient: Zamzam Smith MR#: [id number] : 1965 Acct:[id number] Age/Sex: 58 / F ADM Date: 08/30/24 Loc: .ED Attending Dr: Ordering Physician: Escobar Walsh MD Date of Service: 08/30/24 Procedure(s): CT angio chest aorta Accession Number(s): [id number] cc: Physician,Unknown ; Escobar Walsh MD~ EXAMINATION: CTA CHEST CLINICAL INFORMATION: Chest pain with question of dissection COMPARISON: Chest x-ray earlier today TECHNIQUE: Multidetector volumetric CT imaging of the chest was obtained both before as well as after the administration of 70 mL of Omnipaque 350 intravenous contrast without immediate adverse reactions. Axial MIP volume rendering provided. Sagittal and coronal reformatted images were obtained. Additional 2-D coronal and sagittal reformatted images and axial 3-D maximum intensity projection MIP images are generated on the CT workstation. This CT examination was performed using dose optimization techniques as appropriate, variously including the following: *Automated exposure control *Adjustment of mA and/or kV according to patient size (this includes techniques or standardized protocols for targeted exams where dose is matched to indication/reason for exam; i.e. extremities or head) *Use of iterative reconstruction technique DLP: 253 mGy-cm VASCULAR FINDINGS: The thoracic aorta appears normal without aneurysm, dissection or intramural hematoma. Tricuspid aortic valve is present. No significant coronary calcium is seen. Two-vessel branching pattern of the aortic arch is present with a common trunk involving the innominate and left carotid. The great vessels are widely patent. The small visualized portion of the abdominal aorta appears normal with patent celiac and SMA. A small renal artery on the left and a larger renal artery on the right are patent. There is likely an additional renal artery on the left arising from the more inferior aorta not included on this exam. No central or large proximal pulmonary emboli are seen. The left atria and pulmonary veins appear normal as does the left atrial appendage without thrombus NONVASCULAR FINDINGS: LUNGS: There is a 6.0 x 5.5 x 5.9 mm pleural-based groundglass nodule in the right lower lobe (6: 230). The lungs are otherwise clear with no evidence of inflammation or worrisome nodules. Some bibasilar atelectasis is present. MEDIASTINUM: Some small thyroid nodules are present the largest measuring 6 mm on the left. No mediastinal or hilar lymphadenopathy. Heart size within normal limits. PLEURA: There is no pleural effusion. No pleural mass or thickening. AXILLA: No lymphadenopathy. UPPER ABDOMEN: Unremarkable. OSSEOUS STRUCTURES: Unremarkable. CT/CT angio chest aorta IMPRESSION: 1. No evidence of aortic dissection or other acute aortic syndrome. 2. 6 mm groundglass nodule right lower lobe. 3. Incidental note made of small thyroid nodules. According to the UPDATED 2017 Fleischner Society recommendations, the advised follow-up imaging for a single ground glass nodule <6 mm is no routine follow-up. Electronically signed by: Deangelo Connelly MD 08/30/2024 10:56 PM [facility] [place] Critical Care Time Critical Care Time Critical Care Time: Yes Total Critical Care Time: 50 Attestation: The patient was critically ill with a high probability of imminent or life threatening deterioration. I spent greater than ?55??minutes of discontinuous time evaluating the patient,delivering critical care at the bedside, discussing and evaluating pertinent data with consultants. Critical care time does not include time spent performing separately billable procedures or teaching. Total time spent performing critical care was 50???minutes. Discharge Plan Discharge Clinical Impression: Chest pain Patient Disposition: Home, Self-Care Instructions: Chest Pain (ED) Additional Instructions: Cause of your chest pain is not clear Follow with petroleum laboratory technician for further workup Take baby aspirin daily Referrals: Rogers De León MD [Physician] - 3 days Stand Alone Forms: Work/School Release Interventions: ED Discharge Assessment Last Done: 08/30/24 23:46 Discharge Date/Time: 08/30/24 23:46 Print Language: Yi
--- NOTE | 2024-08-30 19:27 | MHC.EDTECH ---
pt changed over into hospital gown, EKG and vital signs taken and placed on the cardiac specialist. Pt tolerated the EKG well, and stated she had no needs at this time. Call light given for safety. at bedside.
[2024-08-30 19:34] LABS: MANUAL DIFF FLAG NO
[2024-08-30 19:35] LABS: Basophils Percent Auto 0.5 % (0-2); Eosinophils Absolute Auto 0.5 X10*3/uL (0.0-0.4); Eosinophils Percent Auto 7.6 % (0-4); Hematocrit 35.5 % (37.0-47.0); Hemoglobin 12.2 g/dl (12.0-16.0); Imm Gran Abs Auto 0.02 X10*3/uL (0.00-0.03); Imm Gran Pct Auto 0.3 % (0.0-0.4); Lymphocytes Absolute Auto 2.5 X10*3/uL (1.2-4.9); Lymphocytes Percent Auto 39.7 % (20-40); Mean Corpuscular HGB Conc 34.4 g/dl (31.0-35.0); Mean Corpuscular Hemoglobin 29.7 pg (27.0-33.0); Mean Corpuscular Volume 86.4 fL (80.0-98.0); Mean Platelet Volume 8.9 fL (9.4-12.3); Monocytes Absolute Auto 0.3 X10*3/uL (0.1-1.2); Monocytes Percent Auto 5.1 % (2-11); Neutrophils Absolute Auto 2.9 x10*3/uL (2.0-8.3); Neutrophils Percent Auto 46.8 % (45-73); Platelet Count 234 X10*3/uL (160-400); Red Blood Count 4.11 X10*6/uL (4.20-5.50); Red Cell Distribution Width 13.2 % (11.0-16.0); White Blood Count 6.2 X10*3/uL (4.8-10.8)
[2024-08-30] MEDS: Nitroglycerin 0.4 MG TAB.SUBL SUBLINGUAL (19:36)
--- NOTE | 2024-08-30 19:40 | PC.NURSE ---
Patient is alert and oriented x4, VSS. Patient complaints of substernal chest pain 03/16 at present. 20 G IV line established in L AC, labs drawn and sent to lab for processing. Patient medicated per DEC. Patient offers no complaints at this time. Call placed within patient's reach. Plan of care ongoing.
[2024-08-30] MEDS: Nitroglycerin 2 % Oint 1 GM Packet 1 INCH TRANSDERMA (19:48)
[2024-08-30 19:51] LABS: Alanine Aminotransferase 20 U/L (0-31); Albumin Level 4.2 g/dL (3.5-5.0); Alkaline Phosphatase 48 U/L (39-117); Anion Gap 15 (12-20); Aspartate Amino Transferase 18 U/L (5-31); Bilirubin Total 0.4 mg/dL (0.0-1.0); Blood Urea Nitrogen 15 mg/dL (9-16); Calcium 9.6 mg/dL (8.4-10.2); Carbon Dioxide 24 mmol/L (22-29); Chloride 106 mmol/L (96-108); Creatinine Clr Calc Pharmacy 69.2; Estimated Glomerular Filt Rate 60; Glucose Random 116 mg/dL (60-115); Potassium 3.7 mmol/L (3.3-5.1); Sodium 141 mmol/L (135-145); Total Protein 7.4 g/dL (6.5-8.0)
[2024-08-30 20:03] LABS: Prothrombin Time 11.9 SEC (10.9-12.4)
[2024-08-30 20:05] LABS: Partial Thromboplastin Time 30.7 SEC (26.0-36.8)
[2024-08-30 20:16] LABS: Troponin-I High Sensitivity < 2.7 ng/L (<3.5-17.0)
[2024-08-30 21:42] LABS: Troponin-I High Sensitivity < 2.7 ng/L (<3.5-17.0)
[2024-08-30] MEDS: iohexoL 350 MG/ML 100 ML INFUS..BTL 70 ML IV (22:00)
--- NOTE | 2024-08-30 23:20 | ECG_ITS ---
Test Reason : REPEAT/CP Blood Pressure : / mmHG Vent. Rate : 047 BPM Atrial Rate : 047 BPM P-R Int : 148 ms QRS Dur : 090 ms QT Int : 460 ms P-R-T Axes : 019 -10 014 degrees QTc Int : 407 ms Sinus bradycardia Minimal voltage criteria for LVH, may be normal variant ( R in aVL ) Borderline ECG When compared with ECG of 30-AUG-2024 19:15, Borderline criteria for Lateral infarct are no longer Present Referred By: Escobar Walsh Electronically Signed By:EDVIN MOHAMUD
[2024-08-30] MEDS: Ketorolac Tromethamine 30 MG/ML VIAL IVPUSH (23:33)
== END 2024-08-30 23:46 | disposition home or self-care (01) ==
PROVIDERS: Emergency Provider Internal Medicine
DX: R07.89 Other chest pain (principal); M54.50 Low back pain, unspecified; Z79.899 Other long term (current) drug therapy
CPT/HCPCS: 36415; 71045; 71275; 80053; 83735; 84484; 85025; 85610; 85730; 93005; 96374; 99284; 99285; J1885; Q9967

== ENCOUNTER → 2024-08-30 19:15 | Outpatient (BNV) | payer OTHER, SELFPAY | PROVIDERS: Emergency Provider Internal Medicine; Visit Provider Internal Medicine | DX: R07.9 Chest pain, unspecified (principal); R00.1 Bradycardia, unspecified; R94.31 Abnormal electrocardiogram [ECG] [EKG] | CPT/HCPCS: 93010 ==

== ENCOUNTER 2024-09-01 14:59 | Outpatient (AMB) | payer OTHER, SELFPAY ==
[2024-09-01 15:04] VITALS: BP 124/68; PULSE 69; BMI 28.5
--- NOTE | 2024-09-01 15:04 | A.OFFVIS_ITS ---
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 She does not have any known cardiac issues including coronary disease or myocardial infarction or cardiomyopathy or in fact cough cardiac nature. She has had an ex surgery in the past. However, she has been having some chest pains that do not feel that they are related to the neck. She describes the discomfort in the front of the chest which can be more of an achy feeling present intermittently since the last few days. She had an ER evaluation but no evidence of ACS. She is here for further evaluation. Otherwise, not a known hypertensive. No major risk factors. Father has hypertrophic cardiomyopathy but patient without any history of the same. [facility] Family History (Updated 09/01/24 @ 15:10 by Jeanne Rubio CMA) Mother HTN (hypertension) DM2 (diabetes mellitus, type 2) Atrial flutter Breast CA Parkinsons Dementia Father IHSS (idiopathic hypertrophic subaortic stenosis) Prostate CA HTN (hypertension) Hyperlipidemia Dementia Brother Hypercholesteremia Social History (Updated 09/01/24 @ 15:10 by Jeanne Rubio CMA) Alcohol intake: current Alcohol intake frequency: holidays/special occasions only Alcohol type: wine Patient Tobacco Use Status: Never used Tobacco Review of Systems Const Denies chills, Denies daytime sleepiness, Denies fatigue, Denies fever(s), Denies poor appetite, Denies snoring, Denies stops breathing during sleep, De nies weakness, Denies weight gain and Denies weight loss Eyes Denies loss of vision ENT Denies dizziness and Denies hearing loss Card Reports chest pain, Denies irregular heart rhythm, Denies claudication, Denies leg edema, Denies lightheadedness, Reports palpitations, Reports dyspnea, Denies dyspnea on exertion and Denies orthopnea Resp Denies cough, Denies excessive phlegm production, Reports dyspnea, Denies dyspnea on exertion, Denies snoring and Denies wheezing GI Denies abdominal pain, Denies hematochezia, Denies change in bowel habits, Denies nausea and Denies vomiting Denies urinary frequency and Denies dysuria Musc Denies arthralgias, Denies muscle weakness, Denies numbness and Denies other Skin/Breast Denies nail changes and Denies rash Neuro Denies Abnormal speech present, Denies dizziness, Denies loss of vision, Denies memory loss, Denies numbness and Denies weakness Psych Denies depression and Denies memory loss Endo Denies fatigue and Reports palpitations Yobany/Lymph Denies easy bruising Aller/Immun Denies wheezing Physical Exam Vital Signs: Last Vital Signs Pulse 69 09/01/24 15:04 BP 124/68 09/01/24 15:04 BMI result Body Mass Index 28.5 Const General: comfortable and no acute distress Orientation/consciousness: patient oriented x3 HEENT Other: Unremarkable Head: Yes normal to inspection Neck Neck: Yes normal visual inspection Chest Chest palpation & inspection: normal inspection of the chest Resp Auscultation: clear to auscultation bilaterally Cardio Palpation: normal PMI Heart sounds: S1 normal heart sound present, S2 normal heart sound present, no gallops, no murmurs and no rubs GI Palpation (GI): Soft to palpation Back/Spine/Pelvis Other: unremarkable Skin General skin exam: no rashes or lesions noted Neuro General: patient oriented x3 Speech: No Abnormal speech present Extrem General: Yes normal to inspection Psych Mental Status: mental status grossly normal Assessment & Plan Assessment & Plan (1) Precordial chest pain: Code(s): R07.2 - Precordial pain Category: Medical Plan Recent EKG shows sinus rhythm with possible LVH versus normal variant. Otherwise unremarkable. High sensitivity troponin within normal limits. Overall, atypical sounding chest pain of uncertain etiology. Will perform coronary CTA for further evaluation. With regard to the question of LVH on EKG and family history of hypertrophic cardiomyopathy, obtain echocardiogram for further evaluation. Further plan based on the above. Orders: Orders CT Cardiac Coronary Angio Today R07.9 - Chest pain, unspecified Basic Metabolic Panel Today R07.9 - Chest pain, unspecified CA echo transthoracic complete Today I51.7 - Cardiomegaly Coding Level of Care Code New Pt Level 4 (40137) Diagnoses Precordial chest pain R07.2
== END 2024-09-01 15:30 | disposition home or self-care (01) ==
PROVIDERS: Visit Provider Internal Medicine
DX: R07.2 Precordial pain (principal)
CPT/HCPCS: 99214

== ENCOUNTER → 2024-09-01 14:59 | Outpatient (BNVA) | payer OTHER, SELFPAY | PROVIDERS: Visit Provider Internal Medicine ==

== ENCOUNTER → 2024-10-08 14:56 | Outpatient (REF) | payer OTHER, SELFPAY ==
--- NOTE | 2024-10-08 14:58 | CA_ITS ---
Transthoracic Echocardiogram Patient (Last, First, Middle): Zamzam Smith, Gender: Female Date of : 1965 Age: 58 Procedure Date: 10/08/2024 Procedure Type: Transthoracic Echocardiogram Location: OP Height: 167.64 cm Weight: 77.11 kg BSA: 1.87 m2 Heart Rate: bpm BP: 126 / 80 mmHg Nurse Administrator: GUILLERMO Referring MD: Ilan Moe MD Cold Work Operator: Rogers De León MD Symptoms: I51.7 - Cardiomegaly Study Quality: Adequate ECG Rhythm: Sinus Conclusions: - 1. Normal LV ejection fraction of 65-70% 2. Normal cardiac valvular Dopplers 3. Normal RV systolic pressure 4. Upper limits of normal ascending aortic size 5. No gross pericardial effusion Findings Left Ventricle Normal left ventricular size, thickness, and systolic function. The visually estimated ejection fraction is between 65-70%. Spectral Doppler is indicative of an impaired relaxation filling pattern. E/E prime ratio is between 8 and 15 consistent with indeterminate filling pressures. Right Ventricle Normal right ventricular cavity size and systolic function. Atria Both atria are normal in size. Interatrial shunt cannot be excluded. Aortic Valve The aortic valve was not well visualized. There is no aortic valve stenosis. There is no aortic valve regurgitation. Mitral Valve Normal mitral valve structure and function. There is mild mitral annular calcification. There is trace mitral valve regurgitation. There is no mitral valve stenosis. Pulmonic Valve The pulmonic valve was not well visualized. Tricuspid Valve Likely normal tricuspid valve structure and function. There is mild tricuspid valve regurgitation. The right ventricular systolic pressure is normal. The right ventricular systolic pressure is 23 mmHg. Normal right atrial pressure. There is no evidence of pulmonary hypertension. Great Vessels All visible segments of the aorta are normal in size. The pulmonary artery was not well visualized. Venous The inferior vena cava is normal in size and collapses greater than 50% with inspiration. Pericardium/Pleural There is no evidence of pericardial effusion. Measurements 2D Linear Measurements IVSd: 1.03 0.6-0.9/0.6-1.0 cm LVIDd: 4.04 3.9-5.3/4.2-5.9 cm LVIDd Index: 2.16 2.4-3.2/2.2-3.1 cm/m2 LVIDs: 2.50 2.0-3.6 cm LVPWd: 1.03 0.7-1.1 cm LA Diam: 3.00 2.7-3.8/3.0-4.0 cm LAIDs Index: 1.60 1.5-2.3 cm/m2 LV Mass: 167.48 67-162/88-224 g LV Mass Index: 89.56 43-95/49-115 g/m2 LVOT Diam: 2.00 3.0+(-)1.3 cm 2D Systolic Function EF 4C: 69.50 >55% EF 2C: 68.50 >55% EF BiP: 69.20 >55% Mitral Valve MV Pk E: 0.73 MV PK A: 0.97 MV Decel Time: 184.00 E/A: 0.80 E'Lateral: 6.20 E'Medial: 5.33 E/E' Med: 13.70 E/E' Lat: 11.70 PHT: 54.00 MVA PHT: 4.07 Decel Clay: 3.96 Aortic Valve AoV Pk Luigi: 1.56 AoV Mn Luigi: 1.20 AoV VTI: 0.35 AoV Pk Grad: 10.00 Aov Mn Grad: 6.00 GORDO Cont.VTI: 2.27 LVOT LVOT Pk Luigi: 1.10 LVOT Mn Luigi: 0.84 LVOT VTI: 0.25 LVOT Pk Grad: 5.00 LVOT Mn Grad: 3.00 LVOT Diam: 2.00 LVOT Area: 3.14 Diastolic Function MV Pk E: 0.73 MV Pk A: 0.97 E/A: 0.80 E'Medial: 5.33 E/E' Med: 13.70 E' Laterial: 6.20 E/E' Lat: 11.70 Right Ventricle TAPSE (mm): 30.40 TVS' Luigi: 18.60 Tricuspid Valve TR Pk Luigi: 2.24 TR Pk Grad: 20.00 RA Press: 3.00 RVSP: 23.00 Great Vessels Aorta Sinus of Valsalva: 3.09 2.0-3.[address] Ridge: 2.59 1.7-3.4 cm Ao Asc: 3.50 2.1-3.4 cm Ao Arch: 3.00 Updated in Other Vendor System with Status of Final Rogers De León MD electronically signed on 10/09/2024 3:24:19 PM with status of Final
== END ==
LOC: HO.CARD 14:56
PROVIDERS: Visit Provider Internal Medicine
DX: I51.7 Cardiomegaly (principal)
CPT/HCPCS: 93306

== ENCOUNTER → 2024-10-08 14:58 | Outpatient (BNV) | payer OTHER, SELFPAY | PROVIDERS: Visit Provider Internal Medicine Cardiovascular Disease | DX: I36.1 Nonrheumatic tricuspid (valve) insufficiency (principal); I34.81 Nonrheumatic mitral (valve) annulus calcification | CPT/HCPCS: 93306 ==

== ENCOUNTER 2025-01-26 12:13 | Outpatient (AMB) | payer OTHER, SELFPAY ==
[2025-01-26 12:22] VITALS: BP 116/60; PULSE 69; BMI 27.4
--- NOTE | 2025-01-26 12:22 | A.OFFVIS_ITS ---
Vital Signs 01/26/25 12:22 Height 5 ft 6 in Weight 170 lb BMI 27.4 BP 116/60 Blood Pressure Location Lt brachial Position Sitting Pulse 69 Pulse Source Pulse Oximeter Intake Visit Reasons: fu MRI Allergies No Known Allergies [No Known Allergies*] Allergy (Unverified 08/30/24 19:18) Medication List - Last Reconciled 01/26/25 by Ilan Moe MD aspirin (Adult Low Dose Aspirin) 81 mg PO DAILY nitroglycerin 0.4 mg sublingual Q5M PRN HPI Comments Details: Zamzam returns for follow-up. Recently seen in consultation regarding chest pains. No prior cardiac history. Has had neck surgery in the past. She was having some discomfort in the front of the chest that was like an achy feeling, intermittently present. Nonexertional. Had ER evaluation as well but no evidence of ACS. Subsequently, seen in consultation. Underwent an echocardiogram and coronary CTA. She states that she is actually feeling pretty good from that regard. Has not had any further chest pains. No major cardiovascular risk factors. Not a known hypertensive. Father has hypertrophic cardiomyopathy. Patient herself has no history of the same. [facility] Family History (Updated 09/01/24 @ 15:10 by Jeanne Rubio CMA) Mother HTN (hypertension) DM2 (diabetes mellitus, type 2) Atrial flutter Breast CA Parkinsons Dementia Father IHSS (idiopathic hypertrophic subaortic stenosis) Prostate CA HTN (hypertension) Hyperlipidemia Dementia Brother Hypercholesteremia Social History (Updated 09/01/24 @ 15:10 by Jeanen Rubio CMA) Alcohol intake: current Alcohol intake frequency: holidays/special occasions only Alcohol type: wine Patient Tobacco Use Status: Never used Tobacco Review of Systems Const Denies weakness ENT Denies dizziness Card Denies chest pain, Denies chest pain with activity, Denies syncope, Denies rapid heart rate, Denies pedal edema, Denies edema, Denies leg edema, Denies lightheadedness, Denies palpitations, Denies dyspnea, Denies dyspnea on exertion and Denies orthopnea Resp Denies cough, Denies dyspnea and Denies dyspnea on exertion GI Denies hematochezia and Denies change in stool character Musc Denies abnormal gait, Denies muscle cramps, Denies muscle weakness, Denies numbness, Denies radiating pain into limb and Denies tingling Neuro Denies abnormal gait, Denies dizziness, Denies syncope, Denies numbness, Denies tingling and Denies weakness Endo Denies palpitations Physical Exam Vital Signs: Last Vital Signs Pulse 69 01/26/25 12:22 BP 116/60 01/26/25 12:22 BMI result Body Mass Index 27.4 Const General: comfortable and no acute distress Orientation/consciousness: patient oriented x3 HEENT Other: Unremarkable Head: Yes normal to inspection Neck Neck: Yes normal visual inspection Chest Chest palpation & inspection: normal inspection of the chest Resp Auscultation: clear to auscultation bilaterally Cardio Palpation: normal PMI Heart sounds: S1 normal heart sound present, S2 normal heart sound present, no gallops, Murmur heart sound present systolic I/ and at the right sternal border and no rubs GI Palpation (GI): Soft to palpation Back/Spine/Pelvis Other: unremarkable Skin General skin exam: no rashes or lesions noted Neuro General: patient oriented x3 Extrem General: Yes normal to inspection Psych Mental Status: mental status grossly normal Assessment & Plan Assessment & Plan (1) Precordial chest pain: Code(s): R07.2 - Precordial pain Category: Medical Plan Recent EKG shows sinus rhythm with possible LVH versus normal variant. Otherwise unremarkable. High sensitivity troponin within normal limits. Echocardiogram with LVEF of 65-70%. Mild mitral annular calcification but no significant valvular dysfunction. Coronary CTA with no hemodynamically significant coronary disease. No plaque. Minimal proximal stenosis in the 2nd diagonal from superficial myocardial bridge. Overall, chest pain could be noncardiac. Cannot exclude for coronary vasospasm. She has sublingual nitroglycerin but has not used it as she has not had any recent chest pains. Mainly reassurance. If symptoms persist, she will contact us. Otherwise, with regard to history of hypertrophic cardiomyopathy no further information is available as father not have any genetic testing. Based on current data, no clear evidence of hypertrophic cardiomyopathy. Consider repeat echocardiogram in 4-5 years. Coding Level of Care Code Est Pt Level 3 (81906) Diagnoses Precordial chest pain R07.2
--- OUTSIDE RECORDS SUMMARY | 2025-01-26 14:34 | XMS_ITS | Patient Health Record ---
Author Organization [facility] Address [address] [address] Care Team Providers Care Psych Tech Name Role Phone KARLA VARNER Primary Care Provider Maria Ines Kaminski Unavailable [phone] Allergies Allergen (clinical drug ingredient) Drug/Non Drug Allergy documented on EMR Reaction Allergy Type Onset Date Status chloroquine CHLOROQUINE PHOSPHATE Unknown Drug Allergy Active Reason For Referral No Information Medications Medication SIG (Take, Route, Frequency, Duration) Notes Start Date End Date Status Ativan 1 MG 1 tablet Orally prn Not-Taking MetroGel-Vaginal 0.75 % 1 application at bedtime Vaginal EVERY NIGHT X 5 for 5 days 12/23/2020 Active Mirena 20 MCG/24HR Intrauterine Active Vitamin A-Vitamin D-Minerals Not-Taking BuSpar Not-Taking Social History Tobacco Use: Social History Observation Description Date Details (start date - stop date) Never Smoker NA - NA Tobacco Use/Smoking Question Answer Notes Are you a nonsmoker Alcohol Screen (Audit-C) Question Answer Notes Did you have a drink contain ing alcohol in the past year? Yes How often did you have a dri nk containing alcohol in the past year? Monthly or less (1 point) How many drinks did you have on a typical day when you were drinking in the past year? 1 or 2 drinks (0 point) Points 1 Interpretation Negative Problems Problem Type SNOMED Code ICD Code Onset Dates Problem Status W/U Status Risk Notes Problem Mild cervical dysplasia (238649654) Mild cervical dysplasia (N87.0) Active confirmed Problem Postmenopausal bleeding (75838378) Postmenopausal bleeding (N95.0) Active confirmed Problem Abnormal vaginal bleeding (715825321) Other specified abnormal uterine and vaginal bleeding (N93.8) Active confirmed Problem Mammography (56500229) Inconclusive mammogram (R92.2) Active confirmed Problem Abnormal findings on diagnostic imaging of breast (558537557) Other abnormal and inconclusive findings on diagnostic imaging of breast (R92.8) Active confirmed Problem Family history of malignant neoplasm of breast (059198226) Family history of malignant neoplasm of breast (Z80.3) Active confirmed Problem History of dysplasia of cervix (189423313) Personal history of cervical dysplasia (Z87.410) Active confirmed Problem Gynecological examination normal (849060080689686) Routine gynecological examination (V72.31) Active confirmed Diag Problem Insertion of intrauterine contraceptive device (89156336) Insertion of intrauterine contraceptive device (V25.1) Active confirmed Major Problem Surveillance of intrauterine device contraception done (779148801741858) Surveillance of previously prescribed intrauterine contraceptive device (V25.42) Active confirmed Major Plan Of Treatment Pending Test Test Name Order Date Urinalysis 04/29/2020 THIN PREP,HPV,KAYCEE IF HPV+ (>29YR)(SCRN) 01/21/2018 MM Digital Mammo Screening 12/23/2020 MM Digital Mammo Screening 04/29/2020 MM Digital Mammo Screening 09/12/2015 Screening Bilateral Breast Ultrasound Screening Bilateral Breast Ultrasound Bilateral Breast MRI 01/16/2017 MRI Guided Bilateral Breast Biopsy 02/20 ULTRASOUND: PELVIC W/TRANSVAGINAL 2020 Insurance Providers Payer Name Payer Address Payer Phone Subscriber Number Group Number Insured Name Patient Relationship to Insured Coverage Start Date Coverage End Date [employer] [facility] [address] [address] [place] [address] [id number] DAVID ROMO Self - patient is the insured Medical (General) History Medical History History ICD Code Mild cervical dysplasia N87.0 Low grade squamous intraepit helial lesion on cytologic smear of cervix (LGSIL) R87.612 Personal history of cervical dysplasia Z 87.410 Atypical squamous cells of u ndetermined significance on cytologic smear of cervix (ASC-US) R87.610 Other abnormal and inconclusive findings on diagnostic imaging of breast R92.8 Inconclusive mammogram R92.2 Unspecified lump in breast N63 Family history of malignant neoplasm of breast Z80.3 Other specified abnormal uterine and vag inal bleeding N93.8 Postmenopausal bleeding N95.0 Surgical History Surgery Date(Month/Year) Left Breast Biopsy LEEP - NAN I 12/2014 Colposcopy Hospitalization History Reason Date(Month/Year) Vaginal Delivery x 3
== END 2025-01-26 12:38 | disposition home or self-care (01) ==
PROVIDERS: PCP Internal Medicine; Visit Provider Internal Medicine
DX: R07.2 Precordial pain (principal)
CPT/HCPCS: 99213

== ENCOUNTER → 2025-01-26 12:13 | Outpatient (BNVA) | payer OTHER, SELFPAY | PROVIDERS: Visit Provider Internal Medicine ==

== ENCOUNTER 2025-02-04 | Outpatient (REF) | payer OTHER, SELFPAY ==
[2025-02-07 08:13] LABS: TS Negative Control Passed; TS Panel A 0; TS Panel B 1; TS Positive Control Passed; TSpotTB Negative (Negative)
--- OUTSIDE RECORDS SUMMARY | 2025-04-05 11:38 | XMS_ITS | Clinical Summary ---
Author Organization [facility] ity Address [address] [place] [address] Care Team Providers Care Aluminizer Name Role Phone Unavailable Primary Care Provider Unavailabl e Encounters Date Type Department Care Team Description 02/08/2025 Telephone Gastroenterology - [place] [address] [place] [address] Vannessa Lawson MA APPOINTMENT from Last 3 Months Social History Tobacco Use Types Packs/Day Years Used Date Smoking Tobacco: Never Assessed Comments Unknown Sex and Gender Information Value Date Recorded Sex Assigned at Not on file Legal Sex Female 2:03 AM EST Gender Identity Not on file Sexual Orientation Not on file Plan of Treatment Health Maintenance Due Date Last Done Comments Breast Cancer Screening 1965 DTaP,Tdap,and Td Vaccines (1 - Tdap) 1985 Hepatitis B Vaccines (1 of 3 - 19+ 3-dose series) 1985 Cervical Cancer Screening: P ap Smear 01/01/1988 Pneumococcal Vaccine: 50+ Ye ars (1 of 1 - PCV) 2016 Zoster Vaccines (1 of 2) 2016 COVID-19 Vaccine ( - 2023-2 5 season) 2024 Colorectal Cancer Screening: Colonoscopy 02/09/2025 Depression Screening 02/09/2025 HIV Screening 02/09/2025 Hepatitis C Screening 02/09/2025 Social Influencers of Health Screening 02/09/2025 Influenza Vaccine (Season Ended) 2025 HIB Vaccines Aged Out No longer eligi ble based on patient's age to complete this topic HPV Vaccines Aged Out No longer eligi ble based on patient's age to complete this topic Hepatitis A Vaccines Aged Out No long er eligible based on patient's age to complete this topic IPV Vaccines Aged Out No longer eligi ble based on patient's age to complete this topic MMR Vaccines Aged Out No longer eligi ble based on patient's age to complete this topic Meningococcal ACWY Vaccine Aged Out N o longer eligible based on patient's age to complete this topic Meningococcal B Vaccine Aged Out No l onger eligible based on patient's age to complete this topic Pneumococcal Vaccine: Pediat rics (0 to 5 Years) and At-Risk Patients (6 to 64 Years) Aged Out No longer eligible b ased on patient's age to complete this topic RSV Immunization Patients Un antonia 20 months Aged Out No longer eligible b ased on patient's age to complete this topic Varicella Vaccines Aged Out No longer eligible based on patient's age to complete this topic
== END 2025-02-04 00:01 | disposition home or self-care (01) ==
LOC: HO.LAB
PROVIDERS: PCP Internal Medicine; Visit Provider Hospitalist
DX: M54.12 Radiculopathy, cervical region (principal)
CPT/HCPCS: 36415; 86481

== ENCOUNTER 2025-04-29 15:42 | Outpatient (REF) | payer OTHER, SELFPAY ==
--- OUTSIDE RECORDS SUMMARY | 2025-04-29 15:44 | XMS_ITS | Encounter Summary ---
Author Organization [facility] Address [address] [place] [address] Phone Care Team Providers Care Structures Engineer Name Role Phone Darshana Sanchez MD Primary Care Provider Reason for Visit * Reason Onset Date Comments Appointment 01/29/2025 Encounter Details Date Type Department Care Team (Late st Contact Info) Description 01/29/2025 Telephone [facility] [address] [place] [address] [place] [address] Theodora Guaman MD [address], 2nd [place] [address] [email or web address] Appointment Social History Tobacco Use Types Packs/Day Years Used Date Smoking Tobacco: Never Assessed Education Answer Date Recorded Are you interested in more education? Not on ray e 01/29/2025 Are you concerned about learning? Not on file 01/29/2025 No 01/29/2025 No 01/29/2025 Digital Access Answer Date Recorded No 01/29/2025 No 01/29/2025 Reliable internet access at home? Not on file 01/29/2025 Device with a working camera? Not on file Comments Unknown Sex and Gender Information Value Date Recorded Sex Assigned at Not on file Legal Sex Female 5:13 PM EST Gender Identity Not on file Sexual Orientation Not on file documented as of this encounter Progress Notes * DelmiCristy quevedo - 01/29/2025 1:39 PM EDT PT lm on the triage line. Requesting a call back to schedule an appt with . Please advise. Central Support Marketer (Please do not reply to this user; this inbox is not monitored.) Thank you. documented in this encounter Plan of Treatment Not on file documented as of this encounter Visit Diagnoses Not on filedocumented in this encounter Care Teams Structures Engineer Relationship Specialty Start Date End Date Darshana Sanchez MD [address] [place] [address] PCP - General Internal Medicine 01/29/25 documented as of this encounter Additional Source Comments The information contained in this document represents components of the legal health record. It is not the complete legal health record.[facility]
--- OUTSIDE RECORDS SUMMARY | 2025-04-29 15:45 | XMS_ITS | Patient Health Record ---
Author Organization [facility] Address [address] [address] Care Team Providers Care Medical Education Coordinator Name Role Phone KARLA VARNER Primary Care Provider Maria Ines Kaminski Unavailable [phone] Allergies Allergen (clinical drug ingredient) Drug/Non Drug Allergy documented on EMR Reaction Allergy Type Onset Date Status chloroquine CHLOROQUINE PHOSPHATE Unknown Drug Allergy Active Reason For Referral No Information Medications Medication SIG (Take, Route, Frequency, Duration) Notes Start Date End Date Status Ativan 1 MG 1 tablet Orally prn Not-Taking MetroGel-Vaginal 0.75 % 1 application at bedtime Vaginal EVERY NIGHT X 5; Duration: 5 days 12/23/2020 Active Mirena 20 MCG/24HR [...] Status Risk Notes Problem Mild cervical dysplasia (016758938) Mild cervical dysplasia (N87.0) Active confirmed Problem Postmenopausal bleeding (64080109) Postmenopausal bleeding (N95.0) Active confirmed Problem Abnormal vaginal bleeding (723401760) Other specified abnormal uterine and vaginal bleeding (N93.8) Active confirmed Problem Mammography (73402241) Inconclusive mammogram (R92.2) Active confirmed Problem Abnormal findings on diagnostic imaging of breast (979664175) Other abnormal and inconclusive findings on diagnostic imaging of breast (R92.8) Active confirmed Problem Family history of malignant neoplasm of breast (480850488) Family history of malignant neoplasm of breast (Z80.3) Active confirmed Problem History of dysplasia of cervix (728431689) Personal history of cervical dysplasia (Z87.410) Active confirmed Problem Gynecological examination normal (474267915239100) Routine gynecological examination (V72.31) Active confirmed Diag Problem Insertion of intrauterine contraceptive device (08442951) Insertion of intrauterine contraceptive device (V25.1) Active confirmed Major Problem Surveillance of intrauterine device contraception done (596901505851159) Surveillance of previously prescribed intrauterine contraceptive device (V25.42) Active confirmed Major Plan Of Treatment Pending Test Test Name Order Date Urinalysis 04/29/2020 THIN PREP,HPV,KAYCEE IF HPV+ (>29YR)(SCRN) 01/21/2018 MM Digital Mammo Screening 09/12/2015 MM Digital Mammo Screening 12/23/2020 MM Digital Mammo Screening 04/29/2020 Screening Bilateral Breast Ultrasound Screening Bilateral Breast Ultrasound Bilateral Breast MRI 01/16/2017 MRI Guided Bilateral Breast Biopsy 02/20 ULTRASOUND: PELVIC W/TRANSVAGINAL 2020 Insurance Providers Payer Name Payer Address Payer Phone Subscriber Number Group Number Insured Name Patient Relationship to Insured Coverage Start Date Coverage End Date [employer] [facility] [address] [address] [place] [address] [id number] DAVID ROMO Self - patient is the [...]
== END 2025-04-29 15:43 | disposition home or self-care (01) ==
LOC: HO.MAMMO 15:42
PROVIDERS: PCP Internal Medicine; Visit Provider Internal Medicine
DX: Z12.31 Encounter for screening mammogram for malignant neoplasm of breast (principal)
CPT/HCPCS: 77063; 77067

== ENCOUNTER → 2025-04-29 15:45 | Outpatient (BNV) | payer OTHER, SELFPAY | PROVIDERS: PCP Internal Medicine; Visit Provider Internal Medicine | DX: Z12.31 Encounter for screening mammogram for malignant neoplasm of breast (principal) | CPT/HCPCS: 77063; 77067 ==